=== PATIENT | male | born 1990 | race Caucasian/White ===

== ENCOUNTER 2022-11-17 19:09 | Emergency (ER) | payer MEDICAID ==
[2022-11-17 19:30] LABS: PCO2 ARTERIAL,POC 65 mmHg (35-48)
[2022-11-17 19:46] LABS: CHLORIDE,CL 106 mmol/L (98-107); ESTIMATED GFR 24 mL/min (>=60)
[2022-11-17 19:48] LABS: ANION GAP 31.2 mmol/L (5-15); SODIUM,NA 152 mmol/L (136-145)
[2022-11-17 21:55] LABS: CHLORIDE,CL 106 mmol/L (98-107); SODIUM,NA 155 mmol/L (136-145)
[2022-11-17 21:56] LABS: ESTIMATED GFR 23 mL/min (>=60)
[2022-11-17 22:14] LABS: BARBITURATE SCREEN,URINE NEGATIVE (NEGATIVE); BENZODIAZEPINES SCREEN,URINE NEGATIVE (NEGATIVE); BUPRENORPHINE SCREEN,URINE NEGATIVE (NEGATIVE); METHAMPHETAMINE SCREEN, URINE POSITIVE (NEGATIVE); THC SCREEN,URINE 50 NG/ML POSITIVE (NEGATIVE)
[2022-11-17 22:14] LABS: PCO2 ARTERIAL,POC 68 mmHg (35-48)
== END 2022-11-17 22:40 | disposition short-term general hospital (02) ==
LOC: VM.ED 19:09
DX: T50.991A Poisoning by other drugs, medicaments and biological substances, accidental (unintentional), initial encounter (principal); I46.9 Cardiac arrest, cause unspecified; Z72.0 Tobacco use
CPT/HCPCS: 31500; 36415; 36600; 71045; 80048; 80053; 80305-QW; 82150; 82550; 82803; 82947; 83605; 83690; 83735; 84484; 85025; 85610; 85730; 92950; 94002; 96361; 96374; 96375; 99285-25